=== PATIENT | female | born 1970 | race African-American/Black ===

== ENCOUNTER 2021-12-17 00:53 | Emergency (ER) | payer OTHER ==
[~2021-12-17] VITALS: Ht 172.7 cm; Wt 72.6 kg
--- NOTE | 2021-12-17 01:05 | NUR ---
Note ruthie in EDM - 12/17/21 at 0306 by SARABJIT BIBRA FROM HOME C/O SOB X2 HOURS UNRELIEVED BY BREATHING TX AT HOME 1 NEB TX BY EMS O2SAT AT TRIAGE 100%. PATIENT ALERT AND ORIENTED X3. AMBULATORY IN BED 06 AWAITING MD SAAVEDRA.
[2021-12-17] MEDS ORDERED: ALBUTEROL FS 2.5 MG/3 ML VIAL.NEB ONE ×2 (01:14→07:36)
[2021-12-17] MEDS ORDERED: IPRATROPIUM NEB FS 0.5 MG/2.5 ML AMPUL.NEB ONE (01:14)
[2021-12-17] MEDS: ALBUTEROL FS 2.5 MG/3 ML VIAL.NEB CONTNEB ONE ×2 (01:20→07:41)
[2021-12-17] MEDS: IPRATROPIUM NEB FS 0.5 MG/2.5 ML AMPUL.NEB NEB ONE (01:21)
[2021-12-17] MEDS ORDERED: methylPREDNISolone SOD SUCC 125 MG/2ML VIAL ONE (01:30)
[2021-12-17] MEDS ORDERED: Magnesium 1GM/D5W 100ML PREMIX 200 ML IV ONE (01:30)
[2021-12-17] MEDS: Magnesium 1GM/D5W 100ML PREMIX 200 ML IV ONE (01:54)
[2021-12-17] MEDS: IV NS 0.9% 1,000 ML IV ONE (01:54)
[2021-12-17] MEDS: methylPREDNISolone SOD SUCC 125 MG/2ML VIAL IV ONE (01:55)
--- NOTE | 2021-12-17 04:00 | NUR ---
PT COMPLAINED OF HEADACHE. NOTIFIED
[2021-12-17] MEDS ORDERED: IBUPROFEN 600 MG TABLET ONE (04:04)
[2021-12-17] MEDS: IBUPROFEN 600 MG TABLET PO ONE (04:09)
--- NOTE | 2021-12-17 04:54 | NUR ---
COVID SWAB DONE, SENT TO LAB
[2021-12-17] MEDS ORDERED: HYDROCHLOROTHIAZIDE 25 MG TABLET ONE (05:32)
[2021-12-17] MEDS ORDERED: AMLODIPINE BESYLATE 5 MG TABLET ONE (05:32)
[2021-12-17] MEDS: AMLODIPINE BESYLATE 5 MG TABLET PO ONE (05:36)
[2021-12-17] MEDS: HYDROCHLOROTHIAZIDE 25 MG TABLET PO ONE (05:36)
--- NOTE | 2021-12-17 07:25 | NUR ---
ASSESSED PT ON BED AWAKE AND ALERT, NOT IN RESPIRATORY DISTRESS, V/S STABLE, KEPT RESTED AND COMFORTABLE. AWAITING TRANSFER INFO.
--- NOTE | 2021-12-17 07:30 | NUR ---
RT AT BEDSIDE FOR BREATHING TX.
--- NOTE | 2021-12-17 08:28 | NUR ---
[facility] CALLED REGARDING PT ACCEPTANCE ROOM 510-A NUMBER FOR REPORT [phone] TRANSMISSION OPERATOR (SRINI) [phone]
--- NOTE | 2021-12-17 08:33 | NUR ---
CALLED [facility] AND SET UP BLS TRANSPORT TO [facility] ETA [id number]
--- NOTE | 2021-12-17 08:48 | NUR ---
CALLED [facility] FOR REPORT RN NOT AVAILABLE. WILL CALL BACK IN 15 MINS.
--- NOTE | 2021-12-17 09:21 | NUR ---
REPORT GIVEN TO CHANTE VAZQUEZ OF [facility] FOR [facility].
[2021-12-17] MEDS ORDERED: HYDROCODONE/APAP 5/325MG TABLET ONE (10:54)
[2021-12-17] MEDS: HYDROCODONE/APAP 5/325MG TABLET PO ONE (10:55)
[2021-12-17 11:04] VITALS: BP 142/94
--- NOTE | 2021-12-17 11:04 | NUR ---
REPORT GIVEN TO EMT FOR PT TRANSFER TO [facility].
== END 2021-12-17 11:09 | disposition short-term general hospital (02) ==
LOC: ER 01:00
DX: J45.901 Unspecified asthma with (acute) exacerbation (principal); I10 Essential (primary) hypertension; R00.0 Tachycardia, unspecified; Z20.822 Contact with and (suspected) exposure to COVID-19
CPT/HCPCS: 87426; 94640 ×2; 94799; 96365; 96366; 96375; 99291; C9803; J2930; J3475; J7030

== ENCOUNTER 2022-01-08 19:34 | Inpatient (IN) | payer OTHER ==
[~2022-01-08] VITALS: Ht 172.7 cm; Wt 74.8 kg
--- NOTE | 2022-01-08 19:52 | NUR ---
[facility] C/O SOB AND COUGH SINCE SUNDAY. 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 NON COVID VACCINATED. PT AWAKE AND ALERT X4 BREATHING EVEN AND UNLABORED. PLACED ON MONITOR AND O2 SAT 96% RA WHEEZES AUSCULTATED BILATERALLY.
[2022-01-08] MEDS ORDERED: methylPREDNISolone SOD SUCC 125 MG/2ML VIAL IV ONE (20:30)
[2022-01-08] MEDS ORDERED: ALBUTEROL FS 2.5 MG/3 ML VIAL.NEB NEB ONE ×2 (20:30→23:00)
[2022-01-08] MEDS ORDERED: Magnesium 1GM/D5W 100ML PREMIX 200 ML IV ONE (20:30)
[2022-01-08] MEDS ORDERED: IPRATROPIUM NEB FS 0.5 MG/2.5 ML AMPUL.NEB NEB ONE ×2 (20:30→23:00)
[2022-01-08] MEDS ORDERED: ALBUTEROL FS 2.5 MG/3 ML VIAL.NEB ONE ×2 (20:32→23:06)
[2022-01-08] MEDS ORDERED: IPRATROPIUM NEB FS 0.5 MG/2.5 ML AMPUL.NEB ONE ×2 (20:32→23:06)
[2022-01-08] MEDS ORDERED: methylPREDNISolone SOD SUCC 125 MG/2ML VIAL ONE (20:33)
[2022-01-08] MEDS ORDERED: Magnesium 1GM/D5W 100ML PREMIX 100 ML IV ONE ×2 (20:33→21:50)
--- NOTE | 2022-01-08 20:34 | NUR ---
BLOOD COLLECTED AND SENT TO LAB
--- NOTE | 2022-01-08 20:41 | NUR ---
COVID SWAB DONE AND SENT TO LAB
--- NOTE | 2022-01-08 20:48 | NUR ---
COMMUNICATIONS PROJECT MANAGER AT PT'S BEDSIDE
[2022-01-08 21:05] LABS: BASOPHILS % (AUTO) 0.4 % (0.0-2.0); HEMATOCRIT 40 % (33-45); HEMOGLOBIN 13.2 g/dL (11.5-14.8); LYMPHOCYTES # (AUTO) 0.4 K/uL (0.8-4.8); LYMPHOCYTES % (AUTO) 7.3 % (20.0-44.0); MEAN CORPUSCULAR HGB CONC 33 g/dl (31.0-36.0); MEAN CORPUSCULAR VOLUME 92 fL (82-100); MONOCYTES # (AUTO) 0.3 K/uL (0.1-1.30); MONOCYTES % (AUTO) 5.4 % (2.0-12.0); NEUTROPHILS # (AUTO) 5.1 K/uL (1.8-8.9); NEUTROPHILS % (AUTO) 86.9 % (43.0-81.0); PLATELET COUNT (AUTO) 272 K/uL (150-450); RED BLOOD CELL COUNT(AUTO) 4.32 MIL/uL (4.0-5.2); WHITE BLOOD COUNT (AUTO) 5.9 K/uL (4.3-11.0)
[2022-01-08 21:27] LABS: ALANINE AMINOTRANSFERASE 65 U/L (12-78); ALBUMIN 3.4 g/dL (3.4-5.0); ALKALINE PHOSPHATASE 56 U/L (46-116); ASPARTATE AMINOTRANSFERASE 40 U/L (15-37); BILIRUBIN,DIRECT 0.1 mg/dL (0.0-0.2); BILIRUBIN,TOTAL 0.2 mg/dL (0.2-1.0); CALCIUM, SERUM 9.3 mg/dL (8.5-10.1); CARBON DIOXIDE 23 mmol/L (21-32); CHLORIDE 104 mmol/L (98-107); CREATININE 1.1 mg/dL (0.6-1.3); GLUCOSE 276 mg/dL (74-106); POTASSIUM 3.9 mmol/L (3.5-5.1); SODIUM SERUM 141 mmol/L (136-145); TOTAL PROTEIN, SERUM 7.6 g/dL (6.4-8.2); UREA NITROGEN, BLOOD 14 mg/dL (7-18)
--- NOTE | 2022-01-08 23:19 | NUR ---
SPOKE WITH ARG, FROM [facility]. WILL WORK ON TRANSFERRING PT TO [facility] WILL CALL BACK FOR MD TO
--- NOTE | 2022-01-09 00:44 | NUR ---
PT IS AUTHORIZED TO STAY PER ARG, [employer]. AUTH NUMBER IS [id number]
--- NOTE | 2022-01-09 02:55 | NUR ---
PT SLEEPING COMFORTABLY BREATHING EVEN AND UNLABORED EASILY AROUSABLE ALL V/S WNL
[2022-01-09] MEDS ORDERED: ONDANSETRON HCL/PF 4 MG/2 ML VIAL IVP PRN (04:00)
[2022-01-09] MEDS ORDERED: ALBUTEROL FS 2.5 MG/0.5 ML VIAL.NEB NEB PRN (04:00)
[2022-01-09] MEDS ORDERED: ACETAMINOPHEN 325 MG TABLET PO PRN (04:00)
[2022-01-09] MEDS ORDERED: ALBUTEROL FS 2.5 MG/3 ML VIAL.NEB NEB ONE (04:00)
[2022-01-09] MEDS ORDERED: MORPHINE SULFATE INJ 2 MG/ML DISP.SYRIN IV PRN (04:00)
[2022-01-09] MEDS ORDERED: IPRATROPIUM NEB FS 0.5 MG/2.5 ML AMPUL.NEB NEB ONE (04:00)
--- NOTE | 2022-01-09 04:10 | NUR ---
RT AT BEDSIDE
[2022-01-09] MEDS ORDERED: ALBUTEROL FS 2.5 MG/3 ML VIAL.NEB ONE (04:18)
[2022-01-09] MEDS ORDERED: IPRATROPIUM NEB FS 0.5 MG/2.5 ML AMPUL.NEB ONE (04:18)
--- NOTE | 2022-01-09 05:23 | NUR ---
ASSIGNED TO 307-2
--- NOTE | 2022-01-09 05:30 | NUR ---
CALLED FOR REPORT. WAS INFORMED BY CHARGE NURSE THAT THEY ARE UNABLE TO TAKE REPORT AND TO TRANSFER AFTER SHIFT CHANGE.
[2022-01-09] MEDS ORDERED: FLUT12AE3 INH (07:33)
[2022-01-09] MEDS ORDERED: LEVA15HF6 INH (07:33)
[2022-01-09] MEDS ORDERED: BENZ-38 PO (07:33)
[2022-01-09] MEDS ORDERED: PROM118S5 PO (07:33)
[2022-01-09] MEDS ORDERED: ATOR10TA PO (07:33)
[2022-01-09] MEDS ORDERED: AMLO-212 PO (07:33)
[2022-01-09] MEDS ORDERED: CHOL400T PO (07:33)
[2022-01-09] MEDS ORDERED: BENZ1LOZ12 MM (07:33)
[2022-01-09] MEDS ORDERED: ALBUTEROL FS 2.5 MG/3 ML VIAL.NEB NEB SCH ×2 (07:35→11:30)
--- NOTE | 2022-01-09 07:49 | NUR ---
REPORT GIVEN TO RAY FOR TEJAL
[2022-01-09 08:10] VITALS: BP 121/89
[2022-01-09] MEDS: IPRATROPIUM NEB FS 0.5 MG/2.5 ML AMPUL.NEB NEB SCH ×5 (08:10→23:27)
[2022-01-09] MEDS ORDERED: predniSONE 20 MG TABLET PO SCH (09:00)
[2022-01-09] MEDS: HEPARIN SODIUM, PORCINE 5000 UNITS/1 ML VIAL SQ SCH ×2 (09:00→21:00)
--- NOTE | 2022-01-09 09:35 | NUR ---
MS RN ADMITTING NOTES ADMITTED A 51 Y/O FEMALE TO UNIT AT 0805 VIA [facility] ACCOMPANIED BY Rani DIALLO WITH DX OF ASTHMA EXACERBATION. PT ABLE TO WALK FROM [facility] TO HER BED. PT IS A/O X4. ABLE TO MAKE NEEDS KNOW. ORIENTED TO STAFF AND UNIT. PT ON ROOM AIR, TOLERATING WELL, BREATHING EVEN AND UNLABORED AT THIS TIME. PT WITH IV ACCESS PRESENT ON RFA G#20 INTACT, PATENT AND FLUSHES WELL. ABDOMEN SOFT, NON-TENDER AND NON-DISTENDED, BOWEL SOUNDS PRESENT ON FOUR QUADRANTS. LUNGS NOTED WITH RALES AND WHEEZES ON AUSCULTATION. SKIN WARM AND DRY. SAFETY MEASURES IMPLEMENTED: BED PLACED ON LOWEST LOCKED POSITION WITH SR-UP X2. TRAY TABLE AND CALL LIGHT PLACED W/I EASY REACH OF PT. WILL CONTINUE TO MONITOR PT ACCORDINGLY.
[2022-01-09] MEDS ORDERED: BENZONATATE 100 MG CAPSULE PO PRN (11:00)
[2022-01-09] MEDS ORDERED: ALBUTEROL FS 2.5 MG/0.5 ML VIAL.NEB NEB SCH (11:30)
[2022-01-09] MEDS ORDERED: CODEINE/PROMETHAZINE HCL 5 ML UDC PO PRN (11:30)
[2022-01-09] MEDS: AZITHROMYCIN 250 MG TABLET PO SCH (11:36)
--- NOTE | 2022-01-09 12:29 | NUR ---
RN NOTES [employer] CAME TO DRAW PROCALCITONIN LEVEL X2 BUT PT REFUSED DESPITE EXPLAINING RISKS AND BENEFITS.
[2022-01-09] MEDS: methylPREDNISolone SOD SUCC 40 MG/ML VIAL IV SCH ×2 (13:22→17:22)
[2022-01-09] MEDS ORDERED: MONTELUKAST SODIUM (10MG) 10 MG TABLET PO SCH (14:30)
[2022-01-09] MEDS: PANTOPRAZOLE 40 MG TABLET.DR PO SCH (14:30)
[2022-01-09] MEDS: ALBUTEROL FS 2.5 MG/3 ML VIAL.NEB NEB SCH ×3 (15:53→23:28)
--- NOTE | 2022-01-09 17:30 | NUR ---
PATIENT HAD ADVERSE REACTION AFTER GIVEN BOTH ALBUTEROL AND ATROVENT TOGETHER. PATIENT COMPLAINED OF SOB AND HEAVY BREATHING. ELEVATED HEART RATE NOTIFIED AND RN NOTIFIED. Addendum: 01/09/22 at 1732 by JAZZY SOLORIO RT Amended: Links added.
--- NOTE | 2022-01-09 17:31 | NUR ---
RN NOTES IV ACCESS ON RFA G#20 NOTED LEAKING AND REMOVED. NEW IV ACCESS INSERTED TO LFA G#22.
--- NOTE | 2022-01-09 18:40 | NUR ---
MS RN CLOSING NOTES PT RESTING IN BED WATCHING TV AT THIS TIME. A/O X4. ABLE TO MAKE NEEDS KNOWN. AMBULATORY WITH STEADY GAIT. ON ROOM AIR, TOLERATING WELL, BREATHING EVEN AND UNLABORED. IV ACCESS ON LFA G#22 INTACT, PATENT AND FLUSHES WELL. ALL NEEDS AND CARE ATTENDED WELL. SAFETY MEASURES MAINTAINED: BED ON LOWEST LOCKED POSITION WITH SR-UP X2. TRAY TABLE AND CALL LIGHT W/I EASY REACH OF PT. WILL ENDORSE TEJAL TO SENIOR PRODUCT DEVELOPMENT ENGINEER NURSE.
--- NOTE | 2022-01-09 19:39 | NUR ---
MS RN OPENING RECEIVED PATIENT IN BED WATCHING TV. A/OX4 AND ABLE TO MAKE NEEDS KNOWN. PATIENT AMBULATORY WITH STEADY GAIT. NO S/SOF APPARENT DISTRESS, BREATHING PATTERN SYMMETRICAL AND UNLABORED IN ROOM AIR. DENIES ANY PAIN AND DISCOMFORT AT THIS TIME. PER PATIENT SHE HAS NOT PEED YET AT THIS TIME-- COLLECTION OF URINE FOR . NO FLUIDS RUNNING AT THIS TIME, L. FA #22G IV ACCESS INTACT. NEEDS ATTENDED FOR NOW, PATIENT RE-ORIENTED WITH THE USE OF CALL LIGHT. SAFETY IN PLACE. WILL CONTINUE WITH PLAN OF CARE FOR PATIENT.
[2022-01-09 20:00] VITALS: BP 145/72
--- NOTE | 2022-01-09 20:00 | NUR ---
RT NOTE PT HAD ADVERSE REACTION TO ATROVENT HHN TX. PT STATES INCREASED SOB AND HR. REQUESTED TO NOT BE GIVEN IT AGAIN. PT REFUSING ALBUTEROL AT THIS TIME. RN AWARE.
--- NOTE | 2022-01-09 21:18 | NUR ---
MS RN NOTE- NON-ADMIN PT. REFUSED HEPARIN 2100 DOSE SQ. EXPLAINED RISK AND BENEFITS. PER PATIENT "I HAVE NEVER TAKEN SUCH THING". MADE REFINING STILL OPERATOR DOCTOR CLARISSE AWARE.
[2022-01-09] MEDS: MONTELUKAST SODIUM (10MG) 10 MG TABLET PO SCH ×2 (21:50→21:53)
--- NOTE | 2022-01-09 21:53 | NUR ---
MS RN NOTE- NON-ADMIN PATIENT REFUSED MONTELUKAST TAB. RISK AND BENEFITS EXPLAINED. TO QUOTE PATIENT: "I AM ON 7 DIFFERENT MEDICATIONS MA'AM" "I CAN'T BE TAKING NEW MEDICATIONS EVERY TIME, IT'S LIKE THEY'RE EXPERIMENTING ON MY BODY" "DOCTOR NEEDS TO TALK TO ME BEFORE HE DOES THIS" PATIENT ACKNOWLEDGED ABOUT RISK AND BENEFITS. WILL CONTINUE TO MONITOR. CURRENTLY GETTING TX AT THIS TIME.
--- NOTE | 2022-01-09 21:59 | NUR ---
MS RN NOTE OPENED TAB OF MONTELUKAST DISPOSED IN PROPER DISPOSAL BIN.
[2022-01-10] MEDS: IPRATROPIUM NEB FS 0.5 MG/2.5 ML AMPUL.NEB NEB SCH ×6 (03:30→23:30)
[2022-01-10] MEDS: ALBUTEROL FS 2.5 MG/3 ML VIAL.NEB NEB SCH ×6 (04:00→23:55)
--- NOTE | 2022-01-10 05:41 | NUR ---
MS RN NOTE PATIENT REFUSED MORNING LABS.
--- NOTE | 2022-01-10 06:55 | NUR ---
MS RN CLOSING NOTE PATIENT IN BED WITH EYES CLOSED. EASY TO AROUSE. A/OX4. NO S/S OF APPARENT DISTRESS ON ROOM AIR. NO C/O PAIN AT THIS TIME. CONTINUES TO BE NON-COMPLIANT. ALL NEEDS ATTENDED. SAFETY IN PLACE. NO FLUIDS RUNNING AT THIS TIME. WILL ENDORSE TO MORNING SHIFT RN FOR CONTINUITY OF CARE.
[2022-01-10] MEDS: PANTOPRAZOLE 40 MG TABLET.DR PO SCH (07:30)
[2022-01-10 08:00] VITALS: BP 145/91
--- NOTE | 2022-01-10 08:09 | NUR ---
MS RN OPENING NOTES RECEIVED PATIENT IN THE ROOM, AGITATED, ANXIOUS DUE TO IV COMING OUT. PATIENT ON ROOM AIR; BREATHING EVEN AND UNLABORED, NO SOB NOTED. NO IV ACCESS AT THIS TIME. NO COMPLAINS OF PAIN. SAFETY PRECAUTIONS IN PLACE; BED IN LOW POSITION AND LOCKED, RAILS UP X2, CALL LIGHT WITHIN REACH. WILL CONTINUE TO MONITOR PATIENT.
[2022-01-10] MEDS: HEPARIN SODIUM, PORCINE 5000 UNITS/1 ML VIAL SQ SCH ×2 (08:12→21:00)
[2022-01-10] MEDS ORDERED: ALBU8.5H8 INH (10:25)
[2022-01-10] MEDS ORDERED: AZIT250T PO (10:25)
[2022-01-10] MEDS ORDERED: PRED50TA PO (10:25)
[2022-01-10] MEDS ORDERED: MONT10TA22 PO (10:25)
[2022-01-10] MEDS: methylPREDNISolone SOD SUCC 40 MG/ML VIAL IV SCH ×3 (10:38→17:54)
[2022-01-10] MEDS: PROMETHAZINE HCL SYRUP 6.25 MG/5 ML UDC PO PRN (10:41)
[2022-01-10] MEDS: AZITHROMYCIN 250 MG TABLET PO SCH (10:44)
[2022-01-10 16:03] VITALS: BP 134/89
--- NOTE | 2022-01-10 18:40 | NUR ---
MS RN CLOSING NOTES PATIENT REMAINS IN THE ROOM, RESTING. PATIENT ON ROOM AIR; BREATHING EVEN AND UNLABORED, NO SOB NOTED. IV ACCESS ON R WRIST G # 20 PRESENT AND INTACT. NO COMPLAINS OF PAIN. ALL NEEDS ATTENDED DURING THE DAY. SAFETY PRECAUTIONS IN PLACE; BED IN LOW POSITION AND LOCKED, RAILS UP X2, CALL LIGHT WITHIN REACH. WILL ENDORSE TO OBSTETRIC ANAESTHETIST NURSE FOR TEJAL.
--- NOTE | 2022-01-10 19:48 | NUR ---
MS RN OPENING NOTE RECEIVED PATIENT IN BED WATCHING TV. A/OX4 AND ABLE TO MAKE NEEDS KNOWN. NO S/S OF APPARENT DISTRESS ON ROOM AIR, BUT NOTED TO HAVE NON-PRODUCTIVE COUGH. NO C/O PAIN. NO FLUIDS RUNNING AT THIS TIME. SAFETY IN PLACE. NEEDS ATTENDED FOR NOW. ENCOURAGED WITH THE USE OF CALL LIGHT AND STATE FEELINGS. WILL CONTINUE WITH PATIENT'S CARE PLAN PATIENT ALLOWS.
[2022-01-10 20:00] VITALS: BP 143/87
[2022-01-10 20:45] VITALS: BP 143/87
--- NOTE | 2022-01-10 21:06 | NUR ---
MS RN NOTE PATIENT REFUSED 2100 DOSE OF HEPARIN. RISK AND BENEFITS EXPLAINED. PATIENT PASSIVE/ANGRY ABOUT PATIENT TEACHING.
[2022-01-10] MEDS: MONTELUKAST SODIUM (10MG) 10 MG TABLET PO SCH (22:00)
--- NOTE | 2022-01-10 22:25 | NUR ---
MS RN NOTE- NON-ADMIN PATIENT REFUSED 2200 SINGULAIR TAB. RISK AND BENEFITS EXPLAINED.
[2022-01-11] MEDS: IPRATROPIUM NEB FS 0.5 MG/2.5 ML AMPUL.NEB NEB SCH ×6 (03:30→19:34)
[2022-01-11] MEDS: ALBUTEROL FS 2.5 MG/3 ML VIAL.NEB NEB SCH ×6 (03:39→23:31)
--- NOTE | 2022-01-11 06:39 | NUR ---
MS RN CLOSING NOTE PATIENT IN BED WITH EYES CLOSED EASY TO AROUSE. A/OX4. NO S/S OF APPARENT DISTRESS ON ROOM AIR, NON-PRODUCTIVE COUGH STILL NOTED. NO C/O PAIN. PATIENT IV ACCES ON R. WRIST INTACT-- NO FLUIDS RUNNING AT THIS TIME. ALL NEEDS ATTENDED. STILL NON-COMPLIANT WITH MEDICATIONS AND JUST PREFERS BREATHING TREATMENTS. NO SIGNIFICANT CHANGE, ALL NEEDS ATTENDED. WILL ENDORSE TO MORNING SHIFT RN FOR CONTINUITY OF CARE.
[2022-01-11] MEDS: PANTOPRAZOLE 40 MG TABLET.DR PO SCH (07:30)
[2022-01-11 08:00] VITALS: BP 136/83
[2022-01-11] MEDS: HEPARIN SODIUM, PORCINE 5000 UNITS/1 ML VIAL SQ SCH ×2 (09:00→21:00)
[2022-01-11] MEDS: methylPREDNISolone SOD SUCC 40 MG/ML VIAL IV SCH ×3 (09:02→17:58)
[2022-01-11] MEDS: PROMETHAZINE HCL SYRUP 6.25 MG/5 ML UDC PO PRN ×2 (09:14→20:01)
[2022-01-11] MEDS: AZITHROMYCIN 250 MG TABLET PO SCH (11:56)
[2022-01-11 16:00] VITALS: BP 129/77
--- NOTE | 2022-01-11 19:39 | NUR ---
RN NOTE PATIENT RESTING IN BED. A/OX4. NOT IN DISTRESS, CONT IN ROOM AIR. NON-PRODUCTIVE COUGH STILL NOTED. NO C/O PAIN. PATIENT IV ACCES ON R. WRIST INTACT AND PATENT. STILL NON-COMPLIANT WITH MEDICATIONS. NO SIGNIFICANT CHANGE DURING SHIFT, ALL NEEDS ATTENDED. WILL ENDORSE TO NEXT SHIFT RN. ALL SAFETY MEASURES FOLLOWED.
--- NOTE | 2022-01-11 19:45 | NUR ---
MS RN OPENING NOTES RECEIVED PATIENT LAYING AWAKE IN BED. A/O X4. PATIENT WITH REGULAR AND UNLABORED BREATHING ON ROOM AIR, TOLERATED WELL. NO SIGNS AND SYMPTOMS OF DISTRESS NOTED AT THIS TIME. NO COMPLAINS OF PAIN OR DISCOMFORT AT THIS TIME. IV ACCESS R WRIST G #20 SL. IV ACCESS PATENT AND INTACT. SAFETY PRECAUTIONS ENFORCED WITH BED LOCKED AND AT LOWEST POSITION. CALL LIGHT WITHIN REACH AT ALL TIMES. WILL CONTINUE TO MONITOR PATIENT.
[2022-01-11 20:00] VITALS: BP 155/102
[2022-01-11] MEDS: MONTELUKAST SODIUM (10MG) 10 MG TABLET PO SCH (22:00)
[2022-01-12] MEDS: ALBUTEROL FS 2.5 MG/3 ML VIAL.NEB NEB SCH ×4 (03:40→16:16)
--- NOTE | 2022-01-12 06:59 | NUR ---
MS RN CLOSING NOTES PATIENT STILL LAYING AWAKE IN BED. A/O X4. PATIENT WITH REGULAR AND UNLABORED BREATHING ON ROOM AIR, TOLERATED WELL. NO SIGNS AND SYMPTOMS OF DISTRESS NOTED AT THIS TIME. NO COMPLAINS OF PAIN OR DISCOMFORT AT THIS TIME. IV ACCESS R WRIST G #20 SL. IV ACCESS PATENT AND INTACT. SAFETY PRECAUTIONS ENFORCED WITH BED LOCKED AND AT LOWEST POSITION. CALL LIGHT WITHIN REACH AT ALL TIMES. WILL ENDORSE CONTINUITY OF CARE TO DAY SHIFT NURSE.
[2022-01-12] MEDS: PANTOPRAZOLE 40 MG TABLET.DR PO SCH (07:30)
--- NOTE | 2022-01-12 07:35 | NUR ---
ms rn received on bed, awake,alert,oriented x4,not in any form of distress, respirations even and unlabored,no sob noted, lungs are diminish abdomen soft,positive bowel sounds,denies pain at this time, all needs attended.
[2022-01-12] MEDS: HEPARIN SODIUM, PORCINE 5000 UNITS/1 ML VIAL SQ SCH (09:00)
[2022-01-12] MEDS: methylPREDNISolone SOD SUCC 40 MG/ML VIAL IV SCH ×3 (09:03→17:33)
--- NOTE | 2022-01-12 09:10 | NUR ---
ms christelle breakfast served,due meds given, tolerated well, some meds refused.
[2022-01-12] MEDS: PROMETHAZINE HCL SYRUP 6.25 MG/5 ML UDC PO PRN (11:43)
[2022-01-12] MEDS: AZITHROMYCIN 250 MG TABLET PO SCH (11:45)
--- NOTE | 2022-01-12 14:42 | NUR ---
ms rn On bed, no distress noted.
--- NOTE | 2022-01-12 17:00 | NUR ---
ms rn patient ready to go home, waiting for voucher.
--- NOTE | 2022-01-12 18:00 | NUR ---
ms pattern scratcher instructions given,patient went home via bus.
== END 2022-01-12 18:24 | disposition home or self-care (01) | DRG 133 ==
LOC: ER 19:36 → TRANSITION 01-09 04:04 → MED 01-09 05:24
PROVIDERS: ADMIT Registered Nurse; ATTEND Internal Medicine
DX: J96.01 Acute respiratory failure with hypoxia (principal); J45.901 Unspecified asthma with (acute) exacerbation; I10 Essential (primary) hypertension; Z20.822 Contact with and (suspected) exposure to COVID-19; K42.9 Umbilical hernia without obstruction or gangrene; Z91.19 Patient's noncompliance with other medical treatment and regimen
CPT/HCPCS: 36415; 70220-TC; 71045-TC; 80048-TC; 80076-TC; 83880; 84484-TC; 84703-TC; 85025-TC; 87081-TC; 94799-TC; C9803; G0378; J1644; J2270; J2405; J2920; J2930; J3475; Q0169

== ENCOUNTER 2022-12-11 10:28 | Emergency (ER) | payer OTHER ==
[~2022-12-11] VITALS: Ht 172.7 cm; Wt 81.6 kg
[~2022-12-11 10:28] MED LIST: ALBU8.5H8 INH; AMLO-212 PO; ATOR10TA PO; AZIT250T PO; BENZ-38 PO; BENZ1LOZ12 MM; CHOL400T PO; FLUT12AE3 INH; LEVA15HF6 INH; MONT10TA22 PO; PRED50TA PO; PROM118S5 PO
--- NOTE | 2022-12-11 10:47 | NUR ---
PT IN BED 6, A/O X4 TOLORATING ROOM AIR. C/O SOB W/ Hx OF ASTHMA. CONNECTED TO BEDSIDE MONITOR BED LOCKED IN LOWEST POSTION LEFT SIDE RAIL UP. AWAITING MD SAAVEDRA
[2022-12-11] MEDS ORDERED: ALBUTEROL FS 2.5 MG/3 ML VIAL.NEB NEB ONE (11:00)
[2022-12-11] MEDS ORDERED: predniSONE 20 MG TABLET PO ONE (11:00)
[2022-12-11] MEDS ORDERED: IPRATROPIUM NEB FS 0.5 MG/2.5 ML AMPUL.NEB NEB ONE (11:00)
[2022-12-11] MEDS ORDERED: predniSONE 20 MG TABLET ONE (11:15)
[2022-12-11] MEDS ORDERED: IPRATROPIUM NEB FS 0.5 MG/2.5 ML AMPUL.NEB ONE (11:32)
[2022-12-11] MEDS ORDERED: ALBUTEROL FS 2.5 MG/3 ML VIAL.NEB ONE (11:32)
--- NOTE | 2022-12-11 11:55 | NUR ---
RT AT BED SIDE
--- NOTE | 2022-12-11 12:06 | NUR ---
PT RECEIVING BREATHING TREATMENT.
[2022-12-11] MEDS ORDERED: ALBUTEROL FS 2.5 MG/0.5 ML VIAL.NEB NEB ONE (12:30)
[2022-12-11] MEDS ORDERED: ALBUTEROL FS 2.5 MG/0.5 ML VIAL.NEB ONE (12:47)
[2022-12-11 13:16] VITALS: BP 145/96
== END 2022-12-11 13:17 | disposition home or self-care (01) ==
LOC: ER 10:28
DX: J45.901 Unspecified asthma with (acute) exacerbation (principal); I10 Essential (primary) hypertension; Z60.2 Problems related to living alone; Z79.899 Other long term (current) drug therapy
CPT/HCPCS: 99285; 94640 ×2; J7512

== ENCOUNTER 2023-02-15 20:44 | Emergency (ER) | payer OTHER ==
[~2023-02-15] VITALS: Ht 172.7 cm; Wt 81.6 kg
--- NOTE | 2023-02-15 20:58 | NUR ---
BIBS FOR ASTHMA EXACERBATION NOT RESPONDING TO ALBUTEROL INHALER, +FLU LIKE SYMPTOMS +BILATERAL WHEZZING 97% RA. PATIENT PLACED IN BED, VITALS CHECKED.
[2023-02-15] MEDS ORDERED: predniSONE 20 MG TABLET ONE (21:11)
--- NOTE | 2023-02-15 21:13 | NUR ---
EKG DONE AT BEDSIDE
[2023-02-15] MEDS ORDERED: IPRATROPIUM NEB FS 0.5 MG/2.5 ML AMPUL.NEB NEB ONE (21:30)
[2023-02-15] MEDS ORDERED: ALBUTEROL FS 2.5 MG/3 ML VIAL.NEB NEB ONE (21:30)
[2023-02-15] MEDS ORDERED: predniSONE 20 MG TABLET PO ONE (21:30)
--- NOTE | 2023-02-15 21:33 | NUR ---
RT CALLED FOR BREATHING TX
[2023-02-15] MEDS ORDERED: ALBUTEROL FS 2.5 MG/3 ML VIAL.NEB ONE (21:49)
[2023-02-15] MEDS ORDERED: IPRATROPIUM NEB FS 0.5 MG/2.5 ML AMPUL.NEB ONE (21:49)
[2023-02-15] MEDS ORDERED: LEVA15HF4 INH ×2 (22:43→22:47)
[2023-02-15] MEDS ORDERED: PRED20TA PO ×2 (22:43→22:45)
[2023-02-15] MEDS ORDERED: PRED50TA PO (22:45)
--- NOTE | 2023-02-15 22:50 | NUR ---
Patient discharged to home in stable condition. Written and verbal after care instructions given. Patient verbalizes understanding of instruction.
[2023-02-15 22:51] VITALS: BP 159/99
[2023-02-15] MEDS ORDERED: BENZ-13 PO (22:55)
== END 2023-02-15 22:52 | disposition home or self-care (01) ==
LOC: ER 20:46
DX: J45.901 Unspecified asthma with (acute) exacerbation (principal); R05.9 Cough, unspecified; I10 Essential (primary) hypertension; Z98.890 Other specified postprocedural states; Z79.899 Other long term (current) drug therapy; Z60.2 Problems related to living alone
CPT/HCPCS: 99285; 93005; 94640 ×2; J7512

== ENCOUNTER 2023-07-26 22:13 | Emergency (ER) | payer OTHER ==
[~2023-07-26] VITALS: Ht 172.7 cm; Wt 77.1 kg
[~2023-07-26 22:13] MED LIST changes: +BENZ-13 PO; +LEVA15HF4 INH; +PRED20TA PO
[2023-07-26] MEDS ORDERED: PRED50TA PO ×2 (22:45→23:22)
[2023-07-26] MEDS ORDERED: LEVA15HF4 INH ×2 (22:45→23:22)
[2023-07-26] MEDS ORDERED: predniSONE 20 MG TABLET ONE (22:45)
[2023-07-26] MEDS ORDERED: BENZONATATE 100 MG CAPSULE PO ONE (22:45)
[2023-07-26] MEDS ORDERED: IPRATROPIUM NEB FS 0.5 MG/2.5 ML AMPUL.NEB NEB ONE (23:00)
[2023-07-26] MEDS ORDERED: BENZONATATE 100 MG CAPSULE PO PRN (23:00)
[2023-07-26] MEDS ORDERED: ALBUTEROL FS 2.5 MG/3 ML VIAL.NEB CONTNEB ONE (23:00)
[2023-07-26] MEDS ORDERED: predniSONE 20 MG TABLET PO ONE (23:00)
[2023-07-26 23:01] VITALS: O2SAT 94
[2023-07-26] MEDS ORDERED: ALBUTEROL FS 2.5 MG/3 ML VIAL.NEB ONE (23:01)
[2023-07-26] MEDS ORDERED: IPRATROPIUM NEB FS 0.5 MG/2.5 ML AMPUL.NEB ONE (23:01)
[2023-07-26 23:29] VITALS: BP 134/88; TEMP 98
[2023-07-27 00:08] VITALS: O2SAT 100
== END 2023-07-27 00:12 | disposition home or self-care (01) ==
LOC: ER 22:27
DX: J45.901 Unspecified asthma with (acute) exacerbation (principal); I10 Essential (primary) hypertension; E78.00 Pure hypercholesterolemia, unspecified; Z79.899 Other long term (current) drug therapy; Z60.2 Problems related to living alone
CPT/HCPCS: 99285; 94644; J7512

== ENCOUNTER 2023-09-29 13:37 | Emergency (ER) | payer OTHER ==
[~2023-09-29] VITALS: Ht 165.1 cm; Wt 72.6 kg
[2023-09-29 13:50] VITALS: TEMP 98.1
[2023-09-29] MEDS ORDERED: methylPREDNISolone SOD SUCC 125 MG/2ML VIAL ONE (14:29)
[2023-09-29] MEDS ORDERED: ALBUTEROL FS 2.5 MG/0.5 ML VIAL.NEB NEB ONE (14:30)
[2023-09-29] MEDS ORDERED: methylPREDNISolone SOD SUCC 125 MG/2ML VIAL IV ONE (14:30)
[2023-09-29] MEDS ORDERED: ALBUTEROL FS 2.5 MG/0.5 ML VIAL.NEB ONE (14:42)
[2023-09-29 14:48] VITALS: O2SAT 95
[2023-09-29 15:02] VITALS: O2SAT 99
[2023-09-29] MEDS ORDERED: CODEINE/PROMETHAZINE HCL 5 ML UDC ONE (15:36)
[2023-09-29] MEDS ORDERED: PRED20TA PO (15:42)
[2023-09-29 15:45] VITALS: BP 154/98; O2SAT 96
[2023-09-29] MEDS ORDERED: CODEINE/PROMETHAZINE HCL 5 ML UDC PO ONE (16:00)
== END 2023-09-29 16:01 | disposition left against medical advice (07) ==
LOC: ER 13:37
DX: J45.901 Unspecified asthma with (acute) exacerbation (principal); I10 Essential (primary) hypertension; E78.00 Pure hypercholesterolemia, unspecified; Z60.2 Problems related to living alone; Z79.899 Other long term (current) drug therapy
CPT/HCPCS: 99283; 96374; 93005; 94640; J2930

== ENCOUNTER 2023-11-30 18:02 | Emergency (ER) | payer OTHER ==
[~2023-11-30] VITALS: Ht 172.7 cm; Wt 72.6 kg
[2023-11-30] MEDS ORDERED: predniSONE 20 MG TABLET ONE (19:00)
[2023-11-30] MEDS: predniSONE 20 MG TABLET PO ONE (19:04)
[2023-11-30] MEDS ORDERED: IPRATROPIUM NEB FS 0.5 MG/2.5 ML AMPUL.NEB ONE ×2 (19:55→20:14)
[2023-11-30] MEDS ORDERED: ALBUTEROL FS 2.5 MG/3 ML VIAL.NEB ONE ×2 (19:55→20:14)
[2023-11-30 20:00] VITALS: O2SAT 93
[2023-11-30] MEDS: IPRATROPIUM NEB FS 0.5 MG/2.5 ML AMPUL.NEB NEB ONE ×2 (20:00→20:23)
[2023-11-30] MEDS: ALBUTEROL FS 2.5 MG/3 ML VIAL.NEB NEB ONE (20:00)
[2023-11-30 20:15] VITALS: O2SAT 99
[2023-11-30 20:23] VITALS: O2SAT 97
[2023-11-30] MEDS: ALBUTEROL FS 2.5 MG/3 ML VIAL.NEB CONTNEB ONE (20:23)
[2023-11-30] MEDS ORDERED: BENZ-13 PO (21:08)
[2023-11-30] MEDS ORDERED: PRED50TA PO (21:08)
[2023-11-30 21:20] VITALS: O2SAT 97
[2023-11-30] MEDS ORDERED: BENZONATATE 100 MG CAPSULE PO ONE (21:27)
[2023-11-30 21:41] VITALS: BP 150/89; TEMP 98.9; O2SAT 98
[2023-11-30] MEDS: BENZONATATE 100 MG CAPSULE PO PRN (21:41)
== END 2023-11-30 21:43 | disposition home or self-care (01) ==
LOC: ER 18:02
DX: J45.901 Unspecified asthma with (acute) exacerbation (principal); I10 Essential (primary) hypertension; Z20.822 Contact with and (suspected) exposure to COVID-19
CPT/HCPCS: 99285; 71045; 87426; 87804 ×2; 93005; 94644; J7512

== ENCOUNTER 2024-03-06 09:30 | Emergency (ER) | payer OTHER ==
[~2024-03-06] VITALS: Ht 172.7 cm; Wt 86.2 kg
[2024-03-06] MEDS: HYDROCODONE/APAP 5/325MG TABLET PO ONE (10:00)
[2024-03-06] MEDS: methylPREDNISolone SOD SUCC 125 MG/2ML VIAL IV ONE (10:00)
[2024-03-06] MEDS: EPINEPHRINE (1:1000) 1 MG/ML AMPUL SUBCUT ONE (10:00)
[2024-03-06] MEDS ORDERED: ALBUTEROL FS 2.5 MG/3 ML VIAL.NEB ONE (10:02)
[2024-03-06] MEDS ORDERED: IPRATROPIUM NEB FS 0.5 MG/2.5 ML AMPUL.NEB ONE (10:02)
[2024-03-06] MEDS ORDERED: EPINEPHRINE (1:1000) 1 MG/ML AMPUL ONE (10:03)
[2024-03-06] MEDS ORDERED: HYDROCODONE/APAP 5/325MG TABLET ONE (10:04)
[2024-03-06] MEDS ORDERED: methylPREDNISolone SOD SUCC 125 MG/2ML VIAL ONE (10:04)
[2024-03-06 10:10] VITALS: O2SAT 91
[2024-03-06] MEDS: ALBUTEROL FS 2.5 MG/3 ML VIAL.NEB CONTNEB ONE (10:10)
[2024-03-06] MEDS: IPRATROPIUM NEB FS 0.5 MG/2.5 ML AMPUL.NEB NEB ONE (10:10)
[2024-03-06 10:25] VITALS: O2SAT 99
[2024-03-06] MEDS ORDERED: ALBU2.5V13 NEB (10:45)
[2024-03-06 11:23] VITALS: BP 181/98; TEMP 98.1; O2SAT 99
== END 2024-03-06 11:23 | disposition home or self-care (01) ==
LOC: ER 09:40
DX: J45.901 Unspecified asthma with (acute) exacerbation (principal); I10 Essential (primary) hypertension; E78.00 Pure hypercholesterolemia, unspecified; Z79.899 Other long term (current) drug therapy; Z60.2 Problems related to living alone
CPT/HCPCS: 99285; 96374; 93005; 94640; 96372; J0171; J2919

== ENCOUNTER 2024-05-22 07:32 | Emergency (ER) | payer OTHER ==
[~2024-05-22] VITALS: Ht 172.7 cm; Wt 95.3 kg
[~2024-05-22 07:32] MED LIST changes: +ALBU2.5V13 NEB
[2024-05-22] MEDS ORDERED: ALBUTEROL FS 2.5 MG/3 ML VIAL.NEB ONE (08:22)
[2024-05-22] MEDS ORDERED: IPRATROPIUM NEB FS 0.5 MG/2.5 ML AMPUL.NEB ONE (08:23)
[2024-05-22] MEDS ORDERED: predniSONE 20 MG TABLET ONE (08:32)
[2024-05-22] MEDS: predniSONE 20 MG TABLET PO ONE (08:32)
[2024-05-22 08:34] VITALS: O2SAT 98
[2024-05-22] MEDS: IPRATROPIUM NEB FS 0.5 MG/2.5 ML AMPUL.NEB NEB ONE (08:34)
[2024-05-22] MEDS: ALBUTEROL FS 2.5 MG/3 ML VIAL.NEB NEB ONE (08:34)
[2024-05-22 09:02] VITALS: O2SAT 98
[2024-05-22 10:17] VITALS: O2SAT 99
[2024-05-22] MEDS ORDERED: BENZ-13 PO (10:41)
[2024-05-22] MEDS ORDERED: PRED50TA PO (10:41)
[2024-05-22 11:02] VITALS: BP 116/75; TEMP 98.4; O2SAT 99
== END 2024-05-22 11:03 | disposition home or self-care (01) ==
LOC: ER 07:36
DX: J45.909 Unspecified asthma, uncomplicated (principal); R05.9 Cough, unspecified; I10 Essential (primary) hypertension; E78.5 Hyperlipidemia, unspecified; E78.00 Pure hypercholesterolemia, unspecified; Z87.19 Personal history of other diseases of the digestive system; Z60.2 Problems related to living alone
CPT/HCPCS: 99285; 94645; 94644; J7512

== ENCOUNTER 2025-08-10 12:11 | Emergency (ER) | payer OTHER ==
[~2025-08-10] VITALS: Ht 175.3 cm; Wt 81.7 kg
[2025-08-10 12:14] VITALS: BP 176/91; TEMP 98.1; O2SAT 98
== END 2025-08-10 13:07 | disposition home or self-care (01) ==
LOC: ER 12:13
DX: Z48.00 Encounter for change or removal of nonsurgical wound dressing (principal); I10 Essential (primary) hypertension; E78.00 Pure hypercholesterolemia, unspecified; J45.909 Unspecified asthma, uncomplicated; Z79.51 Long term (current) use of inhaled steroids; Z79.52 Long term (current) use of systemic steroids; Z98.890 Other specified postprocedural states
CPT/HCPCS: 99282; A6254